=== PATIENT | male | born 1960 | race Caucasian/White ===

== ENCOUNTER 2016-06-04 09:09 | Emergency (ER) | payer OTHER ==
[2016-06-04 09:16] VITALS: BMI 24.3
--- NOTE | 2016-06-04 09:28 | PDOC ---
History of Present Illness - General Chief Complaint: Lightheaded Stated Complaint: ABD PAIN, NAUSEA, DIZZINESS Time Seen by Provider: 06/04/16 09:26 History Source: Patient Exam Limitations: No Limitations - History of Present Illness Initial Comments: 06/04/16 09:28 CHIEF COMPLAINT: Dizziness HISTORY OF PRESENT ILLNESS: This is a 55 year old male with a history of HTN and HLD who presents ambulatory to the ED with his son complaining of dizziness (describes as lightheadedness, not room-spinning), frontal headache, and nausea/ vomiting since last night. He reports that when he tried to stand up from the couch at 8am, he felt lightheaded and wasn't able to "walk right". He became diaphoretic at that time. His gate is now steady and he was able to ambulate into the ED. He is no longer dizzy or lightheaded, but still has frontal headache. He denies chest pain, shortness of breath, diarrhea/constipation, fevers/chills, or any other symptoms. Vital signs on arrival are all within normal limits. PCP is Dr. Denisha Holland. REVIEW OF SYSTEMS: GENERAL/CONSTITUTIONAL: No fever or chills. No weakness. No weight change. HEAD, EYES, EARS, NOSE AND THROAT: No change in vision. No ear pain or discharge. No sore throat. CARDIOVASCULAR: No chest pain or palpitations. RESPIRATORY: No cough, wheezing, or shortness of breath. GASTROINTESTINAL:Nausea/vomiting. No diarrhea or constipation. GENITOURINARY: No dysuria, frequency, or change in urination. MUSCULOSKELETAL: No joint or muscle swelling or pain. No neck or back pain. SKIN: No rash or easy bruising. NEUROLOGIC: Frontal headache, lightheadedness. No vertigo, loss of consciousness , or loss of sensation. PSYCHIATRIC: No depression or anxiety. ENDOCRINE: No increased thirst. No abnormal weight change. HEMATOLOGIC/LYMPHATIC: No anemia, easy bleeding, or history of blood clots. ALLERGIC/IMMUNOLOGIC: No hives or skin allergy. No latex allergy. PHYSICAL EXAM: GENERAL: The patient is awake, alert, and fully oriented, in no acute distress. HEAD: Normal with no signs of trauma. ENT: Pupils equal, round and reactive to light, extraocular movements intact, sclera anicteric, conjunctiva clear. Neck supple. LUNGS: Clear to auscultation bilaterally. Normal excursion. No respiratory distress or use of accessory muscles. CV: RRR, S1/S2, no MRG. Cap refill < 2 sec. ABDOMEN: Soft, non-distended, non-tender. EXTREMITIES: Normal range of motion, no edema. NEUROLOGICAL: Normal speech, normal gait. CN II-XII grossly intact. PSYCH: Normal mood, normal affect. SKIN: Warm, moist, normal turgor, no rashes or lesions noted. Past History - Past Medical History Allergies/Adverse Reactions: Allergies Allergy/AdvReac Type Severity Reaction Status Date / Time Latex, Natural Rubber Allergy Rash Verified 06/04/16 09:15 Home Medications: Ambulatory Orders RX: Atorvastatin Ca [Lipitor] 20 mg PO HS 03/02/14 RX: Lisinopril/Hydrochlorothiazide [Lisinopril-Hctz 20-12.5 mg Tab] 1 each PO DAILY 03/02/14 RX: Aspirin [Aspirin EC] 81 mg PO DAILY 03/23/15 Anemia: Yes Asthma: No Cancer: No Cardiac Disorders: No CVA: No COPD: No CHF: No Dementia: No Diabetes: No GI Disorders: Yes Disorders: No HTN: Yes Hypercholesterolemia: Yes Liver Disease: No Seizures: No Thyroid Disease: No - Surgical History Abdominal Surgery: No Appendectomy: No Cardiac Surgery: No Cholecystectomy: No Lung Surgery: No Neurologic Surgery: No Orthopedic Surgery: No - Psycho/Social/Smoking Cessation Hx Anxiety: No Suicidal Ideation: No Smoking Status: No Smoking History: Never smoked Have you smoked in the past 12 months: Yes Number of Cigarettes Smoked Daily: 0 Information on smoking cessation initiated: No Hx Alcohol Use: Yes (SOCIALLY) Drug/Substance Use Hx: No Substance Use Type: None Hx Substance Use Treatment: No *Physical Exam - Vital Signs Last Vital Signs Temp Pulse Resp BP Pulse Ox 98.7 F 74 18 120/47 99 06/04/16 09:11 06/04/16 09:11 06/04/16 09:11 06/04/16 09:11 06/04/16 09:11 Heart Score/ECG Review - ECG Intrepretation Comment:: 06/04/16 10:43 Sinus rhythm at 73bpm with occasional PVCs. ED Treatment Course - LABORATORY CBC & Chemistry Diagram: 06/04/16 09:59 06/04/16 09:59 - RADIOLOGY Radiology Studies Ordered: Category Date Time Status CHEST X-RAY PORTABLE* [RAD] Stat Radiology 06/04/16 09:27 Ordered Medical Decision Making - Medical Decision Making 06/04/16 10:47 A/P: 55 year old male with headache, nausea, and lightheadedness. 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 1. EKG 2. Cardiac labs 3. HCT to rule out acute intracranial process 4. Reglan/Benadryl for nausea and headache 5. Orthostatic v/s 6. IVF 7. Re-assess 06/04/16 11:02 CXR: fullness of the left hilum HCT: No acute process 06/04/16 11:53 Patient mildly orthostatic; will give additional IVF. Headache, nausea, dizziness resolved. 06/04/16 14:29 -Flu neg 06/04/16 15:09 Second troponin negative. Patient feeling better and is tolerating po. Will dc with PCP followup and good return precautions. *DC/Admit/Observation/Transfer Diagnosis at time of Disposition: Vomiting Qualifiers: Vomiting type: unspecified Vomiting Intractability: non-intractable Nausea presence: without nausea Qualified Code(s): R11.11 - Vomiting without nausea Headache Qualifiers: Headache chronicity pattern: acute headache Intractability: not intractable - Discharge Dispostion Disposition: HOME Condition at time of disposition: Improved Admit: No - Referrals Referrals: Denisha Moore MD [Primary Care Provider] - Call tomorrow - Patient Instructions Printed Discharge Instructions: DI for Vertigo Additional Instructions: -Rest and stay well-hydrated -Take Meclizine as prescribed for dizziness/nausea -Follow up with your primary care doctor tomorrow -Return here for worsening headache, weakness or numbness in the arms or legs, persistent dizziness, or any other concerning symptoms - Post Discharge Activity Work/School Note: Back to Work
[2016-06-04] MEDS ORDERED: METOCLOPRAMIDE HCL INJECTION 10 MG/2 ML VIAL IVPB ONE (09:36)
[2016-06-04] MEDS ORDERED: METOCLOPRAMIDE HCL INJECTION 10 MG/2 ML VIAL ONE (09:44)
[2016-06-04 10:16] LABS: BASOPHIL 0.2 % (0-2.0); EOSINOPHIL 0.8 % (0-4.5); MCH 26.7 pg (25.7-33.7); MCHC 33.2 g/dl (32.0-35.9); MEAN CELL VOLUME 80.4 fl (80-96); MEAN PLT VOLUME 7.9 fl (7.5-11.1); NEUTROPHILS 85.2 % (42.8-82.8); PLATELET COUNT 222 K/MM3 (134-434); WHITE BLOOD COUNT 10.3 K/mm3 (4.0-10.0)
[2016-06-04 10:29] LABS: INR 1.02 (0.82-1.09); PROTHROMBIN TIME (PATIENT) 11.2 SEC (9.98-11.88)
[2016-06-04 11:08] LABS: ALBUMIN 4.3 g/dl (3.4-5.0); ANION GAP 9 (8-16); BILIRUBIN,TOTAL 0.7 mg/dL (0.2-1.0); CALCIUM 8.4 mg/dL (8.5-10.1); CO2 29 mmol/L (21-32); CREATININE 0.8 mg/dL (0.7-1.3); GLUCOSE,RANDOM 106 mg/dL (74-106); SGOT/AST 27 U/L (15-37); SGPT/ALT 39 U/L (12-78); TOT PROT 7.8 g/dl (6.4-8.2)
[2016-06-04 11:11] LABS: ALK PHOS 53 U/L (45-117); TROPONIN I < 0.02 ng/ml (0.00-0.05)
[2016-06-04] MEDS ORDERED: SODIUM CHLORIDE 1,000 ML IV STA (12:21)
[2016-06-04 14:35] LABS: TROPONIN I < 0.02 ng/ml (0.00-0.05)
[2016-06-04 15:30] VITALS: BP 137/78; PULSE 82; TEMP 98.7
--- NOTE | 2016-06-04 23:22 | EKG ---
Test Reason : Blood Pressure : / mmHG Vent. Rate : 073 BPM Atrial Rate : 073 BPM P-R Int : 164 ms QRS Dur : 086 ms QT Int : 392 ms P-R-T Axes : 035 021 037 degrees QTc Int : 431 ms SINUS RHYTHM WITH OCCASIONAL PREMATURE VENTRICULAR COMPLEXES OTHERWISE NORMAL ECG WHEN COMPARED WITH ECG OF 03-MAR-2014 08:37, PREMATURE VENTRICULAR COMPLEXES ARE NOW PRESENT Confirmed by ALLEN MARTIN MD ([id number]) on 06/04/2016 11:22:27 PM Referred By: Confirmed By:ALLEN MARTIN MD
== END 2016-06-04 15:30 | disposition home or self-care (01) ==
LOC: JER 09:09
PROC: 3E0337Z Introduction of Electrolytic and Water Balance Substance into Peripheral Vein, Percutaneous Approach (ICD-10-PCS; principal; 2016-06-04)
PROC: 3E033GC Introduction of Other Therapeutic Substance into Peripheral Vein, Percutaneous Approach (ICD-10-PCS; 2016-06-04)
DX: I10 Essential (primary) hypertension (principal); E78.00 Pure hypercholesterolemia, unspecified; D64.9 Anemia, unspecified
CPT/HCPCS: 36415; 70450-TC; 71010-TC; 80053; 82550; 82553; 84484; 85025; 85610; 87804; 93005; 93010; 96361; 96374; 96375; 99284-25

== ENCOUNTER 2017-08-20 11:43 | Emergency (ER) | payer BC, OTHER ==
--- NOTE | 2017-08-20 11:57 | PDOC ---
History of Present Illness - General Chief Complaint: Injury Stated Complaint: RIGHT ANKLE INJURY Time Seen by Provider: 08/20/17 11:47 History Source: Patient Exam Limitations: No Limitations - History of Present Illness Initial Comments: 08/20/17 11:53 56 yo M c/ hx of HTN, HLD p/w R ankle foot and pain. 3 days ago, tripped and fell down 4 steps. Injured right ankle. Has been having difficulty ambulating on it 2/2 pain. Noted bruising to medial foot. Denies numbness, weakness. Has been taking alleve for pain control. Reports bearing weight as painful. Past History - Past Medical History Allergies/Adverse Reactions: Allergies Allergy/AdvReac Type Severity Reaction Status Date / Time Latex, Natural Rubber Allergy Rash Verified 08/20/17 11:44 Home Medications: Ambulatory Orders Aspirin [Aspirin EC] 81 mg PO DAILY 03/23/15 Atorvastatin Ca [Lipitor] 20 mg PO HS 08/20/17 Lisinopril/Hydrochlorothiazide [Lisinopril-Hctz 10-12.5 mg Tab] 1 tab PO DAILY 08/20/17 Naproxen Sodium [Aleve] 220 mg PO PRN 08/20/17 Anemia: Yes Asthma: No Cancer: No Cardiac Disorders: No CVA: No COPD: No CHF: No Dementia: No Diabetes: No GI Disorders: Yes Disorders: No HTN: Yes Hypercholesterolemia: Yes Liver Disease: No Seizures: No Thyroid Disease: No - Surgical History Abdominal Surgery: No Appendectomy: No Cardiac Surgery: No Cholecystectomy: No Lung Surgery: No Neurologic Surgery: No Orthopedic Surgery: No - Suicide/Smoking/Psychosocial Hx Smoking Status: No Smoking History: Never smoked Have you smoked in the past 12 months: Yes Number of Cigarettes Smoked Daily: 0 Hx Alcohol Use: Yes (SOCIALLY) Drug/Substance Use Hx: No Substance Use Type: None Hx Substance Use Treatment: No Review of Systems - Review of Systems Able to Perform ROS?: Yes Comments:: 08/20/17 11:58 ROS: GENERAL/CONSTITUTIONAL: No fever or chills. No weakness. HEAD, EYES, EARS, NOSE AND THROAT: No change in vision. No ear pain or discharge. No sore throat. CARDIOVASCULAR: No chest pain or shortness of breath. RESPIRATORY: No cough, wheezing, or hemoptysis. GASTROINTESTINAL: No nausea, vomiting, diarrhea or constipation. GENITOURINARY: No dysuria, frequency, or change in urination. MUSCULOSKELETAL: +Right ankle and foot pain. No neck or back pain. SKIN: No rash NEUROLOGIC: No headache, vertigo, loss of consciousness, or change in strength/ sensation. ENDOCRINE: No increased thirst. No abnormal weight change. HEMATOLOGIC/LYMPHATIC: No anemia, easy bleeding, or history of blood clots. ALLERGIC/IMMUNOLOGIC: No hives or skin allergy. *Physical Exam - Physical Exam Comments: 08/20/17 12:00 GENERAL: Awake, alert, and fully oriented, in no acute distress. HEAD: No signs of trauma EYES: PERRLA, EOMI, sclera anicteric, conjunctiva clear ENT: Auricles normal inspection, hearing grossly normal, nares patent NECK: Normal ROM, supple EXTREMITIES: RLE: 2+ DP pulse. Sensation intact throughout. TTP medial and lateral malleolus. Large ecchymosis to right medial foot. Mild tenderness appreciated along the distal tibia. NEUROLOGICAL: Cranial nerves II through XII grossly intact.~ Normal speech SKIN: Warm, Dry, normal turgor, no rashes or lesions noted. Procedures - Splinting Splint Location: Right: Foot, Ankle Pre-Proc Neuro Vasc Exam: normal Hand-Made Type: orthoglass Splint Type: Yes: Posterior Post-Proc Neuro Vasc Exam: normal Neville Bandage: 3" Sling: No Complications: No Post splint xray: No Good repositioning: Yes ED Treatment Course - RADIOLOGY Radiology Studies Ordered: Category Date Time Status ANKLE & FOOT-RIGHT* [RAD] Stat Radiology 08/20/17 11:51 Ordered LEG TIB/FIB-RIGHT [RAD] Stat Radiology 08/20/17 11:51 Ordered Medical Decision Making - Medical Decision Making 08/20/17 12:03 Vital Signs Temp Pulse Resp BP Pulse Ox 97.7 F 67 16 147/83 100 08/20/17 11:43 08/20/17 11:43 08/20/17 11:43 08/20/17 11:43 08/20/17 11:43 Will need to r/o ankle/foot/distal tib fracture. Xrays If negative for fracture, will likely splint for high degree sprain and have patient follow up with orthopedics. Elevated. NSAIDS. Ice PRN Non weight bearing. 08/20/17 13:51 Xrays reviewed by me, pending official radiology read. Questionable distal nondisplaced medial tibial fracture. Patient was placed in a posterior U splint and made non weight bearing. Pt is ambulatory on crutches. Pt will call today to schedule an apppointment with an orthopedist. *DC/Admit/Observation/Transfer Diagnosis at time of Disposition: Ankle pain Qualifiers: Chronicity: acute Laterality: right Qualified Code(s): M25.571 - Pain in right ankle and joints of right foot - Discharge Dispostion Disposition: HOME Condition at time of disposition: Stable Admit: No - Referrals Referrals: Robin Baldwin MD [Staff Physician] - Barry Yanez MD [Staff Physician] - - Patient Instructions Printed Discharge Instructions: DI for Ankle Sprain Additional Instructions: Please wear the splint on your leg. Do not take this off. When you shower, cover it with a bag. Elevate the leg as much as you can. Do not put weight on your splint or leg. Take 600 mg ibuprofen every 6 hours as needed for pain. Ice 10 minutes every other hour. Use the crutches to walk around. Call today and schedule an appointment with an orthopedist. There may be a possible small fracture on the preliminary xray. Please call back [phone] for the official results. - Post Discharge Activity Forms/Work/School Notes: Back to Work
[2017-08-20 12:00] VITALS: BP 147/83; PULSE 67; TEMP 97.7; BMI 26.6
== END 2017-08-20 14:04 | disposition home or self-care (01) ==
LOC: FER 11:43
PROC: 2W3QX1Z Immobilization of Right Lower Leg using Splint (ICD-10-PCS; principal; 2017-08-20)
DX: M25.571 Pain in right ankle and joints of right foot (principal); I10 Essential (primary) hypertension; E78.5 Hyperlipidemia, unspecified
CPT/HCPCS: 73590-TC-RT-FY; 73610-TC-RT-FY; 73630-TC-RT-FY; 99281-25

== ENCOUNTER 2020-02-04 15:22 | Emergency (ER) | payer OTHER ==
--- NOTE | 2020-02-04 15:26 | PDOC ---
Rapid Medical Evaluation Time Seen by Provider: 02/04/20 15:23 Medical Evaluation: Allergies Allergy/AdvReac Type Severity Reaction Status Date / Time Latex, Natural Rubber Allergy Rash Verified 08/20/17 11:44 02/04/20 15:25 59 y/o M atraumatic L arm numbness into 4th and 5th fingers PE: No gross motor deficits ORDERS: C-spine x-ray Discharge Disposition - Diagnosis Cervical radiculopathy - Discharge Dispostion Condition at time of disposition: Stable - Referrals - Patient Instructions - Post Discharge Activity
[2020-02-04 15:29] VITALS: BP 128/72; PULSE 78; TEMP 98.3; BMI 27.4
--- NOTE | 2020-02-04 16:35 | PDOC ---
History of Present Illness - General Chief Complaint: Pain, Acute Stated Complaint: LT ARM PAIN Time Seen by Provider: 02/04/20 15:23 History Source: Patient Exam Limitations: No Limitations - History of Present Illness Initial Comments: 02/04/20 16:26 Patient is a 59-year-old male with history HTN, HLD, hemorrhoidectomy, here with complaints of numbness to his left fourth and fifth fingers which started half an hour prior to presentation. States that he has pain radiating up the left arm and when he touches the arm he has more pain to the fourth and fifth fingers. He denies any injury, no fall. No prior episodes. He takes an aspirin daily. PMD: Dr. Moore PMHX; as above PSOCHX: (+) hooka, neg etoh, neg drug ALL: Latex GENERAL/CONSTITUTIONAL: [No fever or chills. No weakness. No weight change.] HEAD, EYES, EARS, NOSE AND THROAT: [No change in vision. No ear pain or discharge. No sore throat.] MUSCULOSKELETAL: [(+) joint or muscle swelling or pain. No neck or back pain.] SKIN AND BREASTS: [No rash or easy bruising.] NEUROLOGIC: [No headache, vertigo, loss of consciousness, or loss of sensation.] PSYCHIATRIC: [No depression or anxiety.] ENDOCRINE: [No increased thirst. No abnormal weight change.] HEMATOLOGIC/LYMPHATIC: [No anemia, easy bleeding, or history of blood clots.] ALLERGIC/IMMUNOLOGIC: [No hives or skin allergy. No latex allergy.] GENERAL: [The patient is awake, alert, and fully oriented, in no acute distress.] HEAD: [Normal with no signs of trauma.] EYES: [Pupils equal, round and reactive to light, extraocular movements intact, sclera anicteric, conjunctiva clear.] ABDOMEN: [Soft, nontender, normoactive bowel sounds. No guarding, no rebound. No masses.] EXTREMITIES: [Normal range of motion, no edema. No clubbing or cyanosis. No cor ds, erythema, or tenderness.] NEUROLOGICAL: [Cranial nerves II through XII grossly intact. Sensory intact, strength 5/5 bilaterally, normal speech, cerebella function intact - normal finger to nose, heal to lacey normal gait.] PSYCH: [Normal mood, normal affect.] SKIN: [Warm, Dry, normal turgor, no rashes or lesions noted.] Past History - Medical History Allergies/Adverse Reactions: Allergies Allergy/AdvReac Type Severity Reaction Status Date / Time Latex, Natural Rubber Allergy Rash Verified 08/20/17 11:44 Home Medications: Ambulatory Orders Aspirin [Aspirin EC] 81 mg PO DAILY 03/23/15 Atorvastatin Ca [Lipitor] 20 mg PO HS 08/20/17 Lisinopril/Hydrochlorothiazide [Lisinopril-Hctz 10-12.5 mg Tab] 1 tab PO DAILY 08/20/17 Naproxen Sodium [Aleve] 220 mg PO PRN 08/20/17 Anemia: Yes Asthma: No Cancer: No Cardiac Disorders: No CVA: No COPD: No CHF: No Dementia: No Diabetes: No GI Disorders: Yes Disorders: No HTN: Yes Hypercholesterolemia: Yes Liver Disease: No Seizures: No Thyroid Disease: No - Surgical History Abdominal Surgery: No Appendectomy: No Cardiac Surgery: No Cholecystectomy: No GI Surgery: Yes (HERNIA REPAIR) Lung Surgery: No Neurologic Surgery: No Orthopedic Surgery: No - Immunization History Immunization Up to Date: No - Psycho-Social/Smoking History Smoking Status: No Smoking History: Unknown if ever smoked Have you smoked in the past 12 months: No Number of Cigarettes Smoked Daily: 0 Information on smoking cessation initiated: No - Substance Abuse Hx (Audit-C & DAST Scrn) How often the patient has a drink containing alcohol: Never Score: In Men: 4 or > Positive; In Women: 3 or > Positive: 0 Screen Result (Pos requires Nsg. Audit-10AR): Negative In the last yr the pt used illegal drug/Rx for NonMed reason: No Score: Yes response is considered Positive: 0 Screen Result (Positive result requires Nsg. DAST-10): Negative *Physical Exam - Vital Signs Last Vital Signs Temp Pulse Resp BP Pulse Ox 98.3 F 78 16 128/72 98 02/04/20 15:26 02/04/20 15:26 02/04/20 15:26 02/04/20 15:26 02/04/20 15:26 Medical Decision Making - Medical Decision Making 02/04/20 16:26 Patient is a 59-year-old male with history HTN, HLD, hemorrhoidectomy, here with complaints of numbness to his left fourth and fifth fingers which started half an hour prior to presentation. States that he has pain radiating up the left arm and when he touches the arm he has more pain to the fourth and fifth fingers. He denies any injury, no fall. No prior episodes. He takes an aspirin daily. Symptoms consistent with nerve entrapment Normal neurological exam Cervical spine x-ray done no acute findings I discussed the physical exam findings, ancillary test results and final diagnoses with the patient. I answered all of the patient's questions. The patient was satisfied with the care received and felt comfortable with the discharge plan and treatment plan. The Patient agrees to follow up with the primary care physician within 24-72 hours. Discharge - Discharge Information Problems reviewed: Yes Clinical Impression/Diagnosis: Cervical radiculopathy Condition: Stable Disposition: HOME - Follow up/Referral Referrals: Denisha Moore MD [Primary Care Provider] - - Patient Discharge Instructions Patient Printed Discharge Instructions: DI for Cervical Radiculopathy Additional Instructions: Your Discharge Instructions: You must call primary care physician within 24 hours to arrange follow-up. Return to the Emergency Department with any new, persistent or worsening symptoms, for fever, chills, SOB, dizziness or any other concerning changes that may occur. - Post Discharge Activity
--- OUTSIDE RECORDS SUMMARY | 2020-02-04 19:59 | XMS ---
:1960 Author Organization [facility] Care Team Providers Name Role Phone Dennis Chinchilla MD Unavailable Unavailable TarloweLucia MD Unavailable Unavailable TarloweLucia MD Unavailable Unavailable Tarlowe, H Unavailable Unavailable Tarlowe, H Unavailable Unavailable Tarlowe, H Unavailable Unavailable Re-disclosure Warning The records that you are about to access may contain information from federally- assisted alcohol or drug abuse programs. If such information is present, then the following federally mandated warning applies: This information has been disclosed to you from records protected by federal confidentiality rules (42 CFR part 2). The federal rules prohibit you from making any further disclosure of this information unless further disclosure is expressly permitted by the written consent of the person to whom it pertains or as otherwise permitted by 42 CFR part 2. A general authorization for the release of medical or other information is NOT sufficient for this purpose. The Federal rules restrict any use of the information to criminally investigate or prosecute any alcohol or drug abuse patient.The records that you are about to access may contain highly sensitive health information, the redisclosure of which is protected by Article 27-F of the [facility] Public Health law. If you continue you may haveaccess to information: Regarding HIV / AIDS; Provided by facilities licensed or operated by the [facility] Office of Mental Health; or Provided by the [facility] Office for People With Developmental Disabilities. If such information is present, then the following [facility] mandated warning applies: This information has been disclosed to you from confidential records which are protected by state law. State law prohibits you from making any further disclosure of this information without the specific written consent of the person to whom it pertains, or as otherwise permitted by law. Any unauthorized further disclosure in violation of state law may result in a fine or long term sentence or both. A general authorization for the release of medical or other information is NOT sufficient authorization for further disclosure. Allergies and Adverse Reactions Type Description Substance Reaction Status Data Source(s ) Allergy to Allergy to substance NKDA ATHE NA (Dennis LuciaAgueda substance [facility] Allergy to Allergy to substance NKDA ATHE NA (Dennis H. substance Editae [facility] Allergy to Allergy to substance NKDA ATHE NA (Dennis H. substance Elanlowe [facility] Encounters Encounter Providers Location Date Indications Data Source(s ) Dennis Ngo Attender: [facility] Dennis Salmon 06/09/2019 PAUL Fajardo (Dennis Chinchilla MD: 12 Dennis Chinchilla M.D., 12:00:00 Lucia Moore.C. - [facility] [address] [id number], [place] [address], Ph. Dennis Ngo Attender: [facility] Dennis Salmon 05/27/2019 PAUL Fajardo (Dennis Chinchilla MD: 12 Dennis Chinchilla M.D., 12:00:00 Lucia Ledbetter MD P.C[facility] - [facility] [address], [place] [address], Ph. Dennis Ngo Attender: [facility] Dennis Salmon 05/27/2019 PAUL Fajardo (Dennis Chinchilla MD: 12 Dennis Chinchilla M.D., 12:00:00 Lucia Ledbetter MD P.C[facility] - [facility]uedaD[facility] [address], [place] [address], Ph. Dennis Ngo Attender: [facility] Dennis Salmon 05/02/2019 PAUL Fajardo (Dennis Chinchilla MD: 12 Dennis Chinchilla M.D., 12:00:00 Lucia SesayCAgueda - [facility] M[facility] [address], [place] [phone], Ph. Dennis Ngo Attender: ALEXSANDRA Salmon 05/02/2019 PAUL Fajardo (Dennis Chinchilla MD: 12 Dennis Chinchilla M.D., 12:00:00 Lucia SesayC. - [facility] M[facility] [address], [place] [address], Ph. Dennis Ngo Attender: [facility] Dennis Salmon 05/02/2019 PAUL Fajardo (Dennis Chinchilla MD: 12 Dennis Chinchilla M.D., 12:00:00 Lucia SesayCAgueda - [facility] M[facility] [address], [place] [phone], Ph. Dennis Ngo Attender: ALEXSANDRA Salmon 12/16/2018 PAUL Fajardo (Dennis Chinchilla MD: 12 Dennis Chinchilla M.D., 12:00:00 Lucia Moore.C. - [facility]K M.D[facility] [address], [place] [phone], Ph. Dennis Ngo Attender: [facility] Dennis Salmon 12/16/2018 PAUL Fajardo (Dennis Chinchilla MD: 12 Dennis Chinchilla M.D., 12:00:00 Lucia Moore.C. - [facility] M.D[facility] [address], [place] [address], Ph. Dennis Ngo Attender: [facility] Dennis Salmon 12/16/2018 PAUL Fajardo (Dennis Chinchilla MD: 12 Dennis Chinchilla M.D., 12:00:00 H . Amor Moore.C. - [facility] [address], [place] [phone], Ph. Dennis Ngo Attender: [facility] Dennis Salmon 12/03/2018 PAUL Fajardo (Dennis Chinchilla MD: 12 Dennis Chinchilla M.D., 12:00:00 H Agueda Moore.C. - [facility], [facility] [address], [place] [phone], Ph. Dennis Ngo Attender: [facility] Dennis Salmon 12/03/2018 PAUL Fajardo (Dennis Chinchilla MD: 12 Dennis Chinchilla M.D., 12:00:00 H Agueda Moore.C. - [facility], [facility] [address], [place] [phone], Ph. Dennis Ngo Attender: [facility] Dennis Salmon 12/03/2018 PAUL Fajardo (Dennis Chinchilla MD: 12 Dennis Chinchilla M.D., 12:00:00 H . Amor Moore.C. - [facility] [place] [address], [place] [address], [place] [address], Ph. Dennis Ngo Attender: [facility] Dennis Salmon 11/19/2018 PAUL Fajardo (Dennis Chinchilla MD: 12 Dennis Chinchilla M.D., 12:00:00 H Agueda Moore.C. - [facility] [address], [place] [address], Ph. Dennis Ngo Attender: ALEXSANDRA Salmon 11/19/2018 PAUL Fajardo (Dennis Chinchilla MD: 12 Dennis Chinchilla M.D., 12:00:00 H . Amor Ledbetter MD P.C[facility] - [facility], [facility] [address], [place] [address], Ph. Dennis Ngo Attender: ALEXSANDRA Salmon 11/19/2018 PAUL Fajardo (Dennis Chinchilla MD: 12 Dennis Chinchilla M.D., 12:00:00 H . Amor Ledbetter MD P.C. - [facility] [place] [address], [place] [address], Ph. Medications Medication Brand Start Product Dose Route Administrative Pharmacy [facility] Indications Reaction Description Data Name Date Form Instructions Instructions Source(s) Sodium Enema complet Sodium LEANDRA Phosphate, Dispos ed Phosphate, ( Dennis Dibasic able Dibasic 59.3 H. T arlowe 59.3 MG/ML 19 MG/ML / M.D., / Sodium gram-7 Sodium P.C.) Phosphate, gram/1 Phosphate, Monobasic 18 mL Monobasic 161 MG/ML 161 MG/ML Enema Enema Enema Disposable 19 gram-7 gram/118 mL Nifedipine complet Nifedipine LEANDRA 0.2% ed 0.2% (Dennis ointment ointment Viky Camacho owrony APPLY ONE M.D., PEA SIZE P.C.) APPLICATION NH TID POLYETHYLEN Gavila complet POLYETHY MYRNA LEANDRA E GLYCOL x 17 ed GLYCOL 3350 (Guillaume hael 3350 142 gram/d 21421 MG H. Ta rlowe MG/ML Oral ose Powder for M.D ., Solution oral Oral P.C.) [Gavilax] powder Solution Gavilax 17 [Gavilax] gram/dose oral powder compound complet compound ATHE NA rx(nif+fabian+ ed rx(nif+fabian+v (Dennis vas) APPLY as) H. Tarlow e A PEA SIZE M.D., AMOUNT P.C.) RECTALLY THREE TIMES A DAY Nifedipine complet Nifedipine LEANDRA 0.2% ed 0.2% (Dennis ointment ointment H. Tarl owe APPLY ONE M.D., PEA-SIZE P.C.) APPLICATION NH TID atorvastati atorva complet atorvast atin LEANDRA n 20 MG statin ed 20 MG Oral (Guillaume hael Oral Tablet 20 mg Tablet H. Ta rlowe atorvastati tablet M.D., n 20 mg P.C.) tablet Nifedipine complet Nifedipine LEANDRA 0.2% ed 0.2% (Dennis ointment ointment H. Tarl owe APPLY ONE M.D., PEA-SIZE P.C.) APPLICATION NH TID Amoxicillin amoxic complet Amoxicil masha LEANDRA 875 MG / illin ed 875 MG / (Monty el Clavulanate 875 Clavulanate H . Tarlowe 125 MG Oral mg-pot 125 MG Oral M.D., Tablet assium Tablet P.C.) amoxicillin clavul 875 anate mg-potassiu 125 mg m tablet clavulanate 125 mg tablet doxycycline doxycy complet doxycycl ine LEANDRA hyclate 100 stein ed hyclate 100 (Dennis MG Oral hyclat MG Oral H. Tarl owe Capsule e 100 Capsule M.D., doxycycline mg P.C.) hyclate 100 capsul mg capsule e Sodium Enema complet Sodium LEANDRA Phosphate, Dispos ed Phosphate, ( Dennis Dibasic able Dibasic 59.3 H. T arlowe 59.3 MG/ML 19 MG/ML / M.D., / Sodium gram-7 Sodium P.C.) Phosphate, gram/1 Phosphate, Monobasic 18 mL Monobasic 161 MG/ML 161 MG/ML Enema Enema Enema Disposable 19 gram-7 gram/118 mL Docusate Stool complet Docusate ATH BARRIE Sodium 50 Soften ed Sodium 50 MG (Dennis MG / er-Lax / H. Tarlowe sennosides, ative sennosides, M.D., DETENTION 8.6 MG 8.6 DETENTION 8.6 MG P.C .) Oral Tablet mg-50 Oral Tablet Stool mg Softener-La tablet xative 8.6 mg-50 mg tablet Omeprazole omepra complet Omeprazol e LEANDRA 20 MG zole ed 20 MG (Dennis Delayed 20 mg Delayed H. Tarlo we Release capsul Release Oral M. D., Oral e,wali Capsule P.C.) Capsule yed omeprazole releas 20 mg e capsule,del ayed release compound complet compound ATHE NA rx(nif+fabian+ ed rx(nif+fabian+v (Dennis vas) APPLY as) H. Tarlow e ONE M.D., PEA-SIZE P.C.) APPLICATION RECTALLY 3 TIMES A DAY Ibuprofen ibupro complet Ibuprofen LEANDRA 600 MG Oral fen ed 600 MG Oral ( Dennis Tablet 600 mg Tablet H. Tarlow e ibuprofen tablet M.D., 600 mg P.C.) tablet Amoxicillin amoxic complet Amoxicil masha LEANDRA 500 MG Oral illin ed 500 MG Oral (Dennis Capsule 500 mg Capsule H. Tarl owe amoxicillin capsul M.D., 500 mg e P.C.) capsule Isopropyl Easy complet Isopropyl AT [place] Alcohol 0.7 Touch ed Alcohol 0.7 (Dennis ML/ML Alcoho ML/ML H. Tarlowe Medicated l Prep Medicated M.D ., Pad Easy Pads Pad P.C.) Touch Alcohol Prep Pads sennosides, senna complet sennoside s, LEANDRA DETENTION 8.6 MG 8.6 mg ed DETENTION 8.6 MG ( Dennis Oral Tablet tablet Oral Tablet H. Tarlowe [Senna-Time [Senna-Time] M.D., ] senna 8.6 P.C.) mg tablet Hydrochloro lisino complet Hydrochl orot LEANDRA thiazide pril ed hiazide 12.5 (Mi chael 12.5 MG / 10 MG / H. Tarlowe Lisinopril mg-hyd Lisinopril M .D., 10 MG Oral rochlo 10 MG Oral P .C.) Tablet rothia Tablet lisinopril zide 10 12.5 mg-hydrochl mg orothiazide tablet 12.5 mg tablet Ibuprofen ibupro complet Ibuprofen LEANDRA 600 MG Oral fen ed 600 MG Oral ( Dennis Tablet 600 mg Tablet H. Tarlow e ibuprofen tablet M.D., 600 mg P.C.) tablet Ultra Thin 834842 complet Ultra Thi n LEANDRA Lancets 31 ed Lancets 31 (Mi chael gauge gauge H. Tarlowe M.D., P.C.) FreeStyle 267572 complet FreeStyle LEANDRA Lite Meter ed Lite Meter (Mi chael kit kit H. Tarlowe M.D., P.C.) FreeStyle 884878 complet FreeStyle LEANDRA Lite Meter ed Lite Meter (Ut chael kit kit H. Tarlowe M.D., P.C.) sennosides, senna complet sennoside s, LEANDRA DETENTION 8.6 MG 8.6 mg ed DETENTION 8.6 MG ( Dennis Oral Tablet tablet Oral Tablet H. Tarlowe [Senna-Time [Senna-Time] M.D., ] senna 8.6 P.C.) mg tablet Autolet [id number] complet Autolet ATHE NA Impression ed Impression (Ut chael Lancing Lancing H. Tarlow e Device kit Device kit M.D ., P.C.) doxycycline doxycy complet doxycycl ine LEANDRA hyclate 100 stein ed hyclate 100 (Dennis MG Oral hyclat MG Oral H. Tarl owe Capsule e 100 Capsule M.D., doxycycline mg P.C.) hyclate 100 capsul mg capsule e Amoxicillin amoxic complet Amoxicil masha LEANDRA 500 MG Oral illin ed 500 MG Oral (Dennis Capsule 500 mg Capsule H. Tarl owe amoxicillin capsul M.D., 500 mg e P.C.) capsule ferrous ferrou complet ferrous ATHE NA sulfate 325 s ed sulfate 325 ( Dennis MG Oral sulfat MG Oral H. Tarl owe Tablet e 325 Tablet M.D., ferrous mg (65 P.C.) sulfate 325 mg mg (65 mg iron) iron) tablet tablet Metronidazo metron complet Metronid azol LEANDRA le 250 MG idazol ed e 250 MG (Guillaume hael Oral Tablet e 250 Oral Tablet H. Tarlowe metronidazo mg M.D., le 250 mg tablet P.C.) tablet Ultra-Care 533585 complet Ultra-Car e LEANDRA Lancets 30 ed Lancets 30 (Ut chael gauge gauge H. Tarlowe M.D., P.C.) Autolet 213291 complet Autolet ATHE NA Impression ed Impression (Ut chael Lancing Lancing H. Tarlow e Device kit Device kit M.D ., P.C.) Aspirin 81 aspiri complet Aspirin 8 1 LEANDRA MG Delayed n 81 ed MG Delayed (Mi chael Release mg Release Oral H. T arlowe Oral Tablet tablet Tablet M.D. , aspirin 81 ,delay P.C.) mg ed tablet,wali releas yed release e Metronidazo metron complet Metronid azol LEANDRA le 500 MG idazol ed e 500 MG (Guillaume hael Oral Tablet e 500 Oral Tablet H. Tarlowe metronidazo mg M.D., le 500 mg tablet P.C.) tablet Hydrocortis Procto complet Hydrocor tiso LEANDRA one 25 zone-H ed ne 25 MG/ML (Guillaume hael MG/ML C 2.5 Topical H. Tarlowe Topical % Cream M.D., Cream topica [Proctozone P.C.) [Proctozone l HC] HC] cream Proctozone- perine HC 2.5 % al topical applic cream ator perineal applicator Bisacodyl 5 bisaco complet Bisacody l 5 LEANDRA MG Delayed dyl 5 ed MG Delayed (M ichael Release mg Release Oral H. T arlowe Oral Tablet tablet Tablet M.D. , bisacodyl 5 ,delay P.C.) mg ed tablet,wali releas yed release e Metronidazo metron complet Metronid azol LEANDRA le 500 MG idazol ed e 500 MG (Guillaume hael Oral Tablet e 500 Oral Tablet H. Tarlowe metronidazo mg M.D., le 500 mg tablet P.C.) tablet atorvastati atorva complet atorvast atin LEANDRA n 40 MG statin ed 40 MG Oral (Guillaume hael Oral Tablet 40 mg Tablet H. Ta rlowe atorvastati tablet M.D., n 40 mg P.C.) tablet Ergocalcife Vitami complet Ergocalc ifer LEANDRA rol [address] n [place]2 [place] [address] UNT (M ichael UNT Oral 1,250 Oral Capsule H. Tarlowe Capsule mcg M.D., Vitamin D2 (50,00 P.C.) 1,250 mcg 0 (50,000 unit) unit) capsul capsule e Ultra Thin 535275 complet Ultra Thi n LEANDRA Lancets 31 ed Lancets 31 (Mi chael gauge gauge H. Tarlowe M.D., P.C.) ezetimibe ezetim complet ezetimibe 10 LEANDRA 10 MG Oral jordan 10 ed MG Oral (Guillaume hael Tablet mg Tablet H. Tarlowe ezetimibe tablet M.D., 10 mg P.C.) tablet ferrous ferrou complet ferrous ATHE NA sulfate 325 s ed sulfate 325 ( Dennis MG Oral sulfat MG Oral H. Tarl owe Tablet e 325 Tablet M.D., ferrous mg (65 P.C.) sulfate 325 mg mg (65 mg iron) iron) tablet tablet Ultra-Care [id number] complet Ultra-Car e LEANDRA Lancets 30 ed Lancets 30 (Ut chael gauge gauge H. Amor M.D., P.C.) Metronidazo metron complet Metronid azol LEANDRA le 500 MG idazol ed e 500 MG (Guillaume hael Oral Tablet e 500 Oral Tablet H. Tarlowe metronidazo mg M.D., le 500 mg tablet P.C.) tablet Hydrocortis hydroc complet Hydrocor tiso LEANDRA one 25 ortiso ed ne 25 MG/ML (Guillaume hael MG/ML ne 2.5 Topical H. Tarlow e Topical % Cream M.D., Cream topica P.C.) hydrocortis l one 2.5 % cream topical cream Nifedipine complet Nifedipine LEANDRA 0.2% ed 0.2% (Dennis ointment ointment H. Tarl owe APPLY ONE M.D., PEA-SIZE P.C.) APPLICATION NH TID Amoxicillin amoxic complet Amoxicil masha LEANDRA 875 MG / illin ed 875 MG / (Monty el Clavulanate 875 Clavulanate H . Tarlowe 125 MG Oral mg-pot 125 MG Oral M.D., Tablet assium Tablet P.C.) amoxicillin clavul 875 anate mg-potassiu 125 mg m tablet clavulanate 125 mg tablet POLYETHYLEN Gavila complet POLYETHY MYRNA LEANDRA E GLYCOL x 17 ed GLYCOL 3350 (Guillaume hael 3350 142 gram/d 61722 MG H. Ta rlowe MG/ML Oral ose Powder for M.D ., Solution oral Oral P.C.) [Gavilax] powder Solution Gavilax 17 [Gavilax] gram/dose oral powder Nifedipine complet Nifedipine LEANDRA 0.2% ed 0.2% (Dennis ointment ointment H. Tarl owe APPLY ONE M.D., PEA-SIZE P.C.) APPLICATION NH TID Nifedipine complet Nifedipine LEANDRA 0.2% ed 0.2% (Dennis ointment ointment H. Tarl owe APPLY ONE M.D., PEA-SIZE P.C.) APPLICATION NH TID Metronidazo metron complet Metronid azol LEANDRA le 250 MG idazol ed e 250 MG (Guillaume hael Oral Tablet e 250 Oral Tablet H. Tarlowe metronidazo mg M.D., le 250 mg tablet P.C.) tablet Ergocalcife Vitami complet Ergocalc ifer LEANDRA rol 29208 n D2 ed ol 1.25 MG (Guillaume hael UNT Oral 1,250 Oral Capsule H. Tarlowe Capsule mcg M.D., Vitamin D2 (50,00 P.C.) 1,250 mcg 0 (50,000 unit) unit) capsul capsule e Ultra-Care 479592 complet Ultra-Car e LEANDRA Lancets 30 ed Lancets 30 (Ut chael gauge gauge HAgueda Chinchilla M.D., P.C.) atorvastati atorva complet atorvast atin LEANDRA n 20 MG statin ed 20 MG Oral (Guillaume hael Oral Tablet 20 mg Tablet H. Ta rlowe atorvastati tablet M.D., n 20 mg P.C.) tablet Sodium Enema complet Sodium LEANDRA Phosphate, Dispos ed Phosphate, ( Dennis Dibasic able Dibasic 59.3 H. T arlowe 59.3 MG/ML 19 MG/ML / M.D., / Sodium gram-7 Sodium P.C.) Phosphate, gram/1 Phosphate, Monobasic 18 mL Monobasic 161 MG/ML 161 MG/ML Enema Enema Enema Disposable 19 gram-7 gram/118 mL Autolet [id number] complet Autolet ATHE NA Impression ed Impression (Mi chael Lancing Lancing HAgueda Kohler e Device kit Device kit M.D ., P.C.) Ibuprofen ibupro complet Ibuprofen LEANDRA 600 MG Oral fen ed 600 MG Oral ( Dennis Tablet 600 mg Tablet H. Tarlow e ibuprofen tablet M.D., 600 mg P.C.) tablet Docusate Stool complet Docusate ATH BARRIE Sodium 50 Soften ed Sodium 50 MG (Dennis MG / er-Lax / H. Tarlowe sennosides, ative sennosides, M.D., DETENTION 8.6 MG 8.6 DETENTION 8.6 MG P.C .) Oral Tablet mg-50 Oral Tablet Stool mg Softener-La tablet xative 8.6 mg-50 mg tablet bismuth Bismat complet bismuth ATHE NA subsalicyla rol ed subsalicylat (Dennis te 262 MG 262 mg e 262 MG H. T arlowe Chewable chewab Chewable M.D., Tablet le Tablet P.C.) Bismatrol tablet 262 mg chewable tablet Isopropyl Easy complet Isopropyl AT [place] Alcohol 0.7 Touch ed Alcohol 0.7 (Dennis ML/ML Alcoho ML/ML H. Tarlowe Medicated l Prep Medicated M.D ., Pad Easy Pads Pad P.C.) Touch Alcohol Prep Pads Amoxicillin amoxic complet Amoxicil masha LEANDRA 875 MG / illin ed 875 MG / (Monty el Clavulanate 875 Clavulanate H . Tarlowe 125 MG Oral mg-pot 125 MG Oral M.D., Tablet assium Tablet P.C.) amoxicillin clavul 875 anate mg-potassiu 125 mg m tablet clavulanate 125 mg tablet Ergocalcife Vitami complet Ergocalc ifer LEANDRA rol 03731 n D2 ed ol 1.25 MG (Guillaume hael UNT Oral 1,250 Oral Capsule H. Tarlowe Capsule mcg M.D., Vitamin D2 (50,00 P.C.) 1,250 mcg 0 (50,000 unit) unit) capsul capsule e atorvastati atorva complet atorvast atin LEANDRA n 40 MG statin ed 40 MG Oral (Guillaume hael Oral Tablet 40 mg Tablet H. Ta rlowe atorvastati tablet M.D., n 40 mg P.C.) tablet POLYETHYLEN Gavila complet POLYETHY MYRNA LEANDRA E GLYCOL x 17 ed GLYCOL 3350 (Guillaume hael 3350 142 gram/d 42419 MG H. Ta rlowe MG/ML Oral ose Powder for M.D ., Solution oral Oral P.C.) [Gavilax] powder Solution Gavilax 17 [Gavilax] gram/dose oral powder Docusate Stool complet Docusate ATH BARRIE Sodium 50 Soften ed Sodium 50 MG (Dennis MG / er-Lax / H. Tarlowe sennosides, ative sennosides, M.D., DETENTION 8.6 MG 8.6 DETENTION 8.6 MG P.C .) Oral Tablet mg-50 Oral Tablet Stool mg Softener-La tablet xative 8.6 mg-50 mg tablet Hydrochloro lisino complet Hydrochl orot LEANDRA thiazide pril ed hiazide 12.5 (Mi chael 12.5 MG / 10 MG / H. Tarlowe Lisinopril mg-hyd Lisinopril M .D., 10 MG Oral rochlo 10 MG Oral P .C.) Tablet rothia Tablet lisinopril zide 10 12.5 mg-hydrochl mg orothiazide tablet 12.5 mg tablet Hydrocortis Procto complet Hydrocor tiso LEANDRA one 25 zone-H ed ne 25 MG/ML (Guillaume hael MG/ML C 2.5 Topical H. Tarlowe Topical % Cream M.D., Cream topica [Proctozone P.C.) [Proctozone l HC] HC] cream Proctozone- perine HC 2.5 % al topical applic cream ator perineal applicator Ultra Thin 462740 complet Ultra Thi n LEANDRA Lancets 31 ed Lancets 31 (Mi chael gauge gauge H. Tarlowe M.D., P.C.) atorvastati atorva complet atorvast atin LEANDRA n 20 MG statin ed 20 MG Oral (Guillaume hael Oral Tablet 20 mg Tablet H. Ta rlowe atorvastati tablet M.D., n 20 mg P.C.) tablet ferrous ferrou complet ferrous ATHE NA sulfate 325 s ed sulfate 325 ( Dennis MG Oral sulfat MG Oral H. Tarl owe Tablet e 325 Tablet M.D., ferrous mg (65 P.C.) sulfate 325 mg mg (65 mg iron) iron) tablet tablet ezetimibe ezetim complet ezetimibe 10 LEANDRA 10 MG Oral jordan 10 ed MG Oral (Guillaume hael Tablet mg Tablet H. Tarlowe ezetimibe tablet M.D., 10 mg P.C.) tablet Milk of complet Milk of LEANDRA Magnesia ed Magnesia (Michaelae l H. Editae M.D., P.C.) Aspirin 81 aspiri complet Aspirin 8 1 LEANDRA MG Delayed n 81 ed MG Delayed (Mi chael Release mg Release Oral H. T arlowe Oral Tablet tablet Tablet M.D. , aspirin 81 ,delay P.C.) mg ed tablet,wali releas yed release e Metronidazo metron complet Metronid azol LEANDRA le 250 MG idazol ed e 250 MG (Guillaume hael Oral Tablet e 250 Oral Tablet H. Tarlowe metronidazo mg M.D., le 250 mg tablet P.C.) tablet Milk of complet Milk of LEANDRA Magnesia ed Magnesia (Michae l H. Tarlowe M.D., P.C.) bismuth Bismat complet bismuth ATHE NA subsalicyla rol ed subsalicylat (Dennis te 262 MG 262 mg e 262 MG H. T arlowe Chewable chewab Chewable M.D., Tablet le Tablet P.C.) Bismatrol tablet 262 mg chewable tablet Aspirin 81 aspiri complet Aspirin 8 1 LEANDRA MG Delayed n 81 ed MG Delayed (Mi chael Release mg Release Oral H. T arlowe Oral Tablet tablet Tablet M.D. , aspirin 81 ,delay P.C.) mg ed tablet,wali releas yed release e Nifedipine complet Nifedipine LEANDRA 0.2% ed 0.2% (Dennis ointment ointment H. Tarl owe APPLY ONE M.D., PEA-SIZE P.C.) APPLICATION NH TID Hydrocortis hydroc complet Hydrocor tiso LEANDRA one 25 ortiso ed ne 25 MG/ML (Guillaume hael MG/ML ne 2.5 Topical H. Tarlow e Topical % Cream M.D., Cream topica P.C.) hydrocortis l one 2.5 % cream topical cream doxycycline doxycy complet doxycycl ine LEANDRA hyclate 100 stein ed hyclate 100 (Dennis MG Oral hyclat MG Oral H. Tarl owe Capsule e 100 Capsule M.D., doxycycline mg P.C.) hyclate 100 capsul mg capsule e Hydrochloro lisino complet Hydrochl orot LEANDRA thiazide pril ed hiazide 12.5 (Mi chael 12.5 MG / 10 MG / H. Tarlowe Lisinopril mg-hyd Lisinopril M .D., 10 MG Oral rochlo 10 MG Oral P .C.) Tablet rothia Tablet lisinopril zide 10 12.5 mg-hydrochl mg orothiazide tablet 12.5 mg tablet FreeStyle 407345 complet FreeStyle LEANDRA Lite Meter ed Lite Meter (Mi chael kit kit Viky Adams.D., P.C.) Hydrocortis Procto complet Hydrocor tiso LEANDRA one 25 zone-H ed ne 25 MG/ML (Guillaume hael MG/ML C 2.5 Topical H. Tarlowe Topical % Cream M.D., Cream topica [Proctozone P.C.) [Proctozone l HC] HC] cream Proctozone- perine HC 2.5 % al topical applic cream ator perineal applicator atorvastati atorva complet atorvast atin LEANDRA n 40 MG statin ed 40 MG Oral (Guillaume hael Oral Tablet 40 mg Tablet H. Ta rlowe atorvastati tablet M.D., n 40 mg P.C.) tablet FreeStyle 697989 complet FreeStyle LEANDRA Lite Strips ed Lite Strips ( Dennis Chinchilla M.D., P.C.) Isopropyl Easy complet Isopropyl AT [place] Alcohol 0.7 Touch ed Alcohol 0.7 (Dennis ML/ML Alcohruslan ML/ML Viky Chinchilla Medicated l Prep Medicated M.D ., Pad Easy Pads Pad P.C.) Touch Alcohol Prep Pads FreeStyle 523488 complet FreeStyle LEANDRA Lite Strips ed Lite Strips ( Dennis Chinchilla M.D., P.C.) ezetimibe ezetim complet ezetimibe 10 LEANDRA 10 MG Oral jordan 10 ed MG Oral (Guillaume hael Tablet mg Tablet H. Amor ezetimibe tablet M.D., 10 mg P.C.) tablet Hydrocortis hydroc complet Hydrocor tiso LEANDRA one 25 ortiso ed ne 25 MG/ML (Guillaume hael MG/ML ne 2.5 Topical H. Tarlow e Topical % Cream M.D., Cream topica P.C.) hydrocortis l one 2.5 % cream topical cream sennosides, senna complet sennoside s, LEANDRA DETENTION 8.6 MG 8.6 mg ed DETENTION 8.6 MG ( Dennis Oral Tablet tablet Oral Tablet H. Tarlowe [Senna-Time [Senna-Time] M.D., ] senna 8.6 P.C.) mg tablet Amoxicillin amoxic complet Amoxicil masha LEANDRA 500 MG Oral illin ed 500 MG Oral (Dennis Capsule 500 mg Capsule Viky rangel amoxicillin capsul M.D., 500 mg e P.C.) capsule Milk of complet Milk of LEANDRA Magnesia ed Magnesia (Michaelae angelina Chinchilla M.D., P.C.) FreeStyle 174836 complet FreeStyle LEANDRA Lite Strips ed Lite Strips ( Dennis Chincihlla M.D., P.C.) bismuth Bismat complet bismuth ATHE NA subsalicyla rol ed subsalicylat (Dennis te 262 MG 262 mg e 262 MG H. T arlowe Chewable chewab Chewable M.D., Tablet le Tablet P.C.) Bismatrol tablet 262 mg chewable tablet Omeprazole omepra complet Omeprazol e LEANDRA 20 MG zole ed 20 MG (Dennis Delayed 20 mg Delayed H. Tarlo we Release capsul Release Oral M. D., Oral e,wali Capsule [facility].) Capsule yed omeprazole releas 20 mg e capsule,del ayed release Omeprazole omepra complet Omeprazol e LEANDRA 20 MG zole ed 20 MG (Dennis Delayed 20 mg Delayed H. Tarlo we Release capsul Release Oral M. D., Oral e,wali Capsule P.C.) Capsule yed omeprazole releas 20 mg e capsule,del ayed release Nifedipine complet Nifedipine LEANDRA 0.2% ed 0.2% (Dennis ointment ointment Viky rangel APPLY ONE M.D., PEA SIZE P.C.) APPLICATION [place] T[place] Insurance Providers Payer name Policy type Policy ID Covered Covered democrat's Policy P jeremy / Coverage democrat ID relationship to Nelson Inf ormation type nelson [facility] [id number] [address] [place] [address] NON CAP Problems, Conditions, and Diagnoses Code Display Name Description Problem Type Effective Dates Data Source(s) 98733466 Prolapsed Prolapsed Problem 06/09/2019 LEANDRA external External 12:00:00 AM EST (Dennis Salmon hemorrhoids Hemorrhoids Amor Storey , [facility] [id number] Anal pain Anal Pain Problem 11/19/2018 LEANDRA 12:00:00 AM EDT (Dennis Chinchilla [facility] [id number] Bleeding from Bleeding from Problem 11/19/2018 LEANDRA anus Anus 12:00:00 AM EDT (Dennis [facility]inchilla [facility] [id number] Anal fissure Anal Fissure Problem 11/19/2018 LEANDRA 12:00:00 AM EDT (Dennis [facility]inchilla [facility] [id number] Anal pain Anal Pain Problem 11/19/2018 LEANDRA 12:00:00 AM EDT (Dennis [facility]inchilla [facility] [id number] Bleeding from Bleeding from Problem 11/19/2018 LEANDRA anus Anus 12:00:00 AM EDT (Dennis [facility]inchilla [facility] [id number] Anal fissure Anal Fissure Problem 11/19/2018 LEANDRA 12:00:00 AM EDT (Dennis [facility]inchilla [facility] [id number] Anal pain Anal Pain Problem 11/19/2018 LEANDRA 12:00:00 AM EDT (Dennis [facility]inchilla [facility] [id number] Bleeding from Bleeding from Problem 11/19/2018 LEANDRA anus Anus 12:00:00 AM EDT (Dennis [facility]inchilla [facility] [id number] Anal fissure Anal Fissure Problem 11/19/2018 LEANDRA 12:00:00 AM EDT (Dennis [facility]inchilla [facility] Surgeries/Procedures Procedure Description Date Indications Data Source(s) Colonoscopy 05/14/2014 12:00:00 AM PAUL Fajardo (Dennis [facility] Colonoscopy 05/14/2014 12:00:00 AM PAUL Fajardo (Dennis LuciaAgueda [facility] Colonoscopy 05/14/2014 12:00:00 AM PAUL Fajardo (Dennis LuciaAgueda [facility] Social History Code Duration Value Status Description Data Source(s ) Smoking Current Some Day completed Current Some Day AT [facility] (Dennis Myers. Smoker Smoker [facility]or Ding[facility] Smoking Current Some Day completed Current Some Day AT [facility] (Dennis H. Smoker Smoker Editae M.Kaden[facility] Smoking Current Some Day completed Current Some Day AT [facility] (Dennis H. Smoker Smoker Elanlowe M.Kaden[facility] Vital Signs ID Date Data Source UNK Name Value Range Interpretation Code Description Data Source(s) Body height 65 [in_i] 65 [in_i] LEANDRA (Monty Chinchilla [facility] Body height 65 [in_i] 65 [in_i] LEANDRA (Monty Adams.Kaden[facility] Body height 65 [in_i] 65 [in_i] LEANDRA (Monty Adams.[facility] Body weight 182 [lb_av] 182 [lb_av] LEANDRA (Guillaume Adams.[facility] Body mass index 30.3 kg/m2 30.3 kg/m2 LEANDRA (Angie Salmon (BMI) [Ratio] Tarlowe M.D [facility] Body height 65 [in_i] 65 [in_i] LEANDRA (Monty Adams.[facility]aden[facility] Body weight 182 [lb_av] 182 [lb_av] LEANDRA (Guillaume Adams.[facility]aden[facility] Body mass index 30.3 kg/m2 30.3 kg/m2 LEANDRA (Angie Salmon (BMI) [Ratio] Tarlowe M.D [facility] Body height 65 [in_i] 65 [in_i] LEANDRA (Monty Ansarilowe M.D[facility] Body weight 182 [lb_av] 182 [lb_av] LEANDRA (Guillaume erick Chinchilla M.D[facility] Body mass index 30.3 kg/m2 30.3 kg/m2 LEANDRA (Angie jamiesarmad MyersAgueda (BMI) [Ratio] Tarlowe M.D [facility] Body height 65 [in_i] 65 [in_i] LEANDRA (Monty Ansarilowe M.D[facility] Body height 65 [in_i] 65 [in_i] LEANDRA (Monty Ansarilowe M.D[facility] Body height 65 [in_i] 65 [in_i] LEANDRA (Monty Ansarilowe M.D[facility] Body height 65 [in_i] 65 [in_i] LEANDRA (Monty Kohlere M.D[facility] Body height 65 [in_i] 65 [in_i] LEANDRA (Monty reilly H. Elanlowe M.D[facility] Body height 65 [in_i] 65 [in_i] LEANDRA (Monty reilly HAgueda Ansarilowe M.D[facility] Body height 65 [in_i] 65 [in_i] LEANDRA (Monty Ansarilowe M.D[facility] Body weight 190 [lb_av] 190 [lb_av] LEANDRA (Guillaume Kohlere M.D[facility] Body mass index 31.6 kg/m2 31.6 kg/m2 LEANDRA (Angie jamiesarmad MyersAgueda (BMI) [Ratio] Tarlowe M.D ., [facility] Body height 65 [in_i] 65 [in_i] LEANDRA (Monty reilly H. Elanlowe M.D[facility] Body weight 190 [lb_av] 190 [lb_av] LEANDRA (Guillaume erick Ansarilowe M.D., P.C[facility] Body mass index 31.6 kg/m2 31.6 kg/m2 LEANDRA (Angie jamiesarmad MyersAgueda (BMI) [Ratio] Amor Adams.Kaden ., P.C[facility] Body height 65 [in_i] 65 [in_i] LEANDRA (Monty melba Chinchilla M.D[facility] Body weight 190 [lb_av] 190 [lb_av] LEANDRA (Guillaume suarez Viky Chinchilla M.D[facility] Body mass index 31.6 kg/m2 31.6 kg/m2 LEANDRA (Angie jamiesarmad MyersAgueda (BMI) [Ratio] Editae Angie.Kaden ., P.C.) Body height 65 [in_i] 65 [in_i] LEANDRA (Monty melba Chinchilla M.D[facility] Patient Treatment Plan of Care Planned Activity Planned Date Details Description Data Source (s) LEANDRA (Dennis Chinchilla M.D[facility] P .C[facility] LEANDRA (Dennis Chinchilla M.D[facility] P .C.) LEANDRA (Dennis Chinchilla M.D[facility] P .C.) LEANDRA (Dennis Chinchilla M.D., P .C.) LEANDRA (Dennis Chinchilla M.D., P .C.) LEANDRA (Dennis Chinchilla M.D., P .C.) Ergocalciferol 71027 UNT Oral LEANDRA (Dennis Salmon Capsule Amor Storey, P .C[facility] Ultra-Care Lancets 30 gauge LEANDRA (Dennsi Chinchilla M.D[facility] P .C.) Ultra Thin Lancets 31 gauge LEANDRA (Dennis Chinchilla M.D[facility] P .[facility] Docusate Sodium 50 MG / ATHE NA (Dennis Salmon sennosides, DETENTION 8.6 MG Oral Tarlowe M.D[facility] Tablet sennosides, DETENTION 8.6 MG Oral LEANDRA (Dennis Salmon Tablet [Senna-Time] Tarsashae M.D., P.C.) Hydrocortisone 25 MG/ML Topical LEANDRA (Dennis Salmon Cream [Proctozone HC] Edita e M.D., P.C.) Omeprazole 20 MG Delayed ATH BARRIE (Dennis H. Release Oral Capsule Tarlowe M.D[facility] Nifedipine 0.2% ointment APPLY LEANDRA (Dennis H. ONE PEA-SIZE APPLICATION [place] TID Tarlowe M.D[facility] Nifedipine 0.2% ointment APPLY LEANDRA (Dennis H. ONE PEA-SIZE APPLICATION [place] TID Tarlowe M.D[facility] Nifedipine 0.2% ointment APPLY LEANDRA (Dennis H. ONE PEA SIZE APPLICATION [place] TID Tarlowe M.D., P.C.) Milk of Gay LEANDRA (Guillaume hael H. Amor M.D., P .C.) Metronidazole 500 MG Oral AT GULSHAN (Dennis H. Tablet Tarlowe M.D[facility] P .C.) Metronidazole 250 MG Oral AT GULSHAN (Dennis H. Tablet Tarlowe M.D., P .C.) Hydrochlorothiazide 12.5 MG / LEANDRA (Dennis H. Lisinopril 10 MG Oral Tablet Tarsashae M.D., P.C.) Ibuprofen 600 MG Oral Tablet LEANDRA (Dennis H. Amor M.D[facility] P .[facility] Hydrocortisone 25 MG/ML Topical LEANDRA (Dennis H. Cream Amor M.D[facility] P .[facility] POLYETHYLENE GLYCOL 3350 142 LEANDRA (Dennis H. MG/ML Oral Solution [Gavilax] Amor M.D., P.C.) FreeStyle Lite Strips LEANDRA (Dennis Adams.Kaden., P .C.) FreeStyle Lite Meter kit ATH BARRIE (Dennis H. Amor Adams.D., P .C.) ferrous sulfate 325 MG Oral LEANDRA (Dennis H. Tablet Tarlowe M.D[facility] P .C.) ezetimibe 10 MG Oral Tablet LEANDRA (Dennis H. Editae M.D., P .C.) Sodium Phosphate, Dibasic 59.3 LEANDRA (Dennis Salmon MG/ML / Sodium Phosphate, Ta rlowe M.D., P.C.) Monobasic 161 MG/ML Enema Isopropyl Alcohol 0.7 ML/ML LEANDRA (Dennis Myers. Medicated Pad Amor M.D., P.C.) doxycycline hyclate 100 MG Oral LEANDRA (Dennis H. Capsule Tararelis M.Kaden., P .C.) compound rx(nif+fabian+vas) APPLY LEANDRA (Dennis H. A PEA SIZE AMOUNT RECTALLY T ararelis Ding., P.C.) THREE TIMES A DAY bismuth subsalicylate 262 MG LEANDRA (Dennis H. Chewable Tablet Amor Adams.Kaden. , P.C.) Bisacodyl 5 MG Delayed Release LEANDRA (Dennis H. Oral Tablet Amor Adams.Kaden., P .C.) Autolet Impression Lancing A THENA (Dennis H. Device kit Amor Ding., P .C.) atorvastatin 40 MG Oral Tablet LEANDRA (Dennis H. Amor Adams.Kaden., P .C.) atorvastatin 20 MG Oral Tablet LEANDRA (Dennis H. Amor Adams.Kaden., P .C.) Aspirin 81 MG Delayed Release LEANDRA (Dennis H. Oral Tablet Amor Ding., P .C.) Amoxicillin 875 MG / LEANDRA (Dennis H. Clavulanate 125 MG Oral Tablet Tararelis Adams.Kaden., P.C.) Amoxicillin 500 MG Oral Capsule LEANDRA (Dennis H. Amor Adams.Kaden., P .C.) Ergocalciferol 28601 UNT Oral LEANDRA (Dennis H. Capsule Elanlowe M.D., P .C.) Ultra-Care Lancets 30 gauge LEANDRA (Dennis H. Amor Ding., P .[facility].) Ultra Thin Lancets 31 gauge LEANDRA (Dennis H. Amor Ding., P .C.) Docusate Sodium 50 MG / ATHE NA (Dennis H. sennosides, DETENTION 8.6 MG Oral Tarlowe M.D[facility].) Tablet sennosides, DETENTION 8.6 MG Oral LEANDRA (Dennis H. Tablet [Senna-Time] Tararelis M.D., P.C.) Hydrocortisone 25 MG/ML Topical LEANDRA (Dennis H. Cream [Proctozone HC] Elanlow e Angie.Kaden., P.C.) Omeprazole 20 MG Delayed ATH BARRIE (Dennis H. Release Oral Capsule Amor M.Kaden., [facility] Nifedipine 0.2% ointment APPLY LEANDRA (Dennis H. ONE PEA-SIZE APPLICATION [place] TID Tarlowe M.D[facility] Nifedipine 0.2% ointment APPLY LEANDRA (Dennis H. ONE PEA-SIZE APPLICATION [place] TID Tarlowe M.D[facility] Nifedipine 0.2% ointment APPLY LEANDRA (Dennis H. ONE PEA SIZE APPLICATION [place] TID Tarlowe M.D., P.[facility] Milk of Gay LEANDRA (Guillaume hael H. Amor Ding., P .C.) Metronidazole 500 MG Oral AT [place] (Dennis H. Tablet Amor M.D., P .C.) Metronidazole 250 MG Oral AT GULSHAN (Dennis H. Tablet Amor M.Kaden[facility] P .C.) Hydrochlorothiazide 12.5 MG / LEANDRA (Dennis H. Lisinopril 10 MG Oral Tablet Amor Adams.Kaden., P.C.) Ibuprofen 600 MG Oral Tablet LEANDRA (Dennis H. Amor Ding., P .C.) Hydrocortisone 25 MG/ML Topical LEANDRA (Dennis H. Cream Amor Ding., P .C[facility] POLYETHYLENE GLYCOL 3350 142 LEANDRA (Dennis H. MG/ML Oral Solution [Gavilax] Amor Ding., P.C.) FreeStyle Lite Strips LEANDRA (Dennis Chinchilla M.D., P .C.) FreeStyle Lite Meter kit ATH BARRIE (Dennis Chinchilla M.D., P .C.) ferrous sulfate 325 MG Oral LEANDRA (Dennis H. Tablet Editae M.D., P .C.) ezetimibe 10 MG Oral Tablet LEANDRA (Dennis H. Amor Adams.Kaden., P .C.) Sodium Phosphate, Dibasic 59.3 LEANDRA (Dennis H. MG/ML / Sodium Phosphate, Ta rlowe Angie.D., P.C.) Monobasic 161 MG/ML Enema Isopropyl Alcohol 0.7 ML/ML LEANDRA (Dennis Myers. Medicated Pad Amor Ding., P.C[facility] doxycycline hyclate 100 MG Oral LEANDRA (Dennis H. Capsule Tarlowe M.D., P .C.) compound rx(nif+fabian+vas) APPLY LEANDRA (Dennis Myers. ONE PEA-SIZE APPLICATION Tar lowe M.D., P.C.) RECTALLY 3 TIMES A DAY bismuth subsalicylate 262 MG LEANDRA (Dennis Myers. Chewable Tablet Tarlowrony M.D. , P.C.) Autolet Impression Lancing A THENA (Dennis Myers. Device kit Amor M.D., P .C.) atorvastatin 40 MG Oral Tablet LEANDRA (Dennis H. Tarlowe M.D., P .C.) atorvastatin 20 MG Oral Tablet LEANDRA (Dennis H. Tarlowe M.D., P .C.) Aspirin 81 MG Delayed Release LEANDRA (Dennis H. Oral Tablet Tarlowe M.D., P .C.) Amoxicillin 875 MG / LEANDRA (Dennis H. Clavulanate 125 MG Oral Tablet Tarlowe M.D., P.C.) Amoxicillin 500 MG Oral Capsule LEANDRA (Dennis H. Editae M.D., P .C.) Ergocalciferol 87475 UNT Oral LEANDRA (Dennis H. Capsule Tarlowe M.D., P .C.) Ultra-Care Lancets 30 gauge LEANDRA (Dennis H. Amor M.D[facility] P .C[facility] Ultra Thin Lancets 31 gauge LEANDRA (Dennis H. Editae M.D., P .C.) Docusate Sodium 50 MG / ATHE NA (Dennis Myers. sennosides, DETENTION 8.6 MG Oral Tarlowe M.D[facility] P.C.) Tablet sennosides, DETENTION 8.6 MG Oral LEANDRA (Denins H. Tablet [Senna-Time] Tarlowe M.D., P.C[facility] Hydrocortisone 25 MG/ML Topical LEANDRA (Dennis Myers. Cream [Proctozone HC] Tarlow e M.D., P.C.) Omeprazole 20 MG Delayed ATH BARRIE (Dennis H. Release Oral Capsule Tarlowe M.D[facility] Nifedipine 0.2% ointment APPLY LEANDRA (Dennis Myers. ONE PEA-SIZE APPLICATION [place] TID Tarlowe M.D[facility] Nifedipine 0.2% ointment APPLY LEANDRA (Dennis Myers. ONE PEA-SIZE APPLICATION [place] TID Amor Ding., [facility] Milk of Magnesia LEANDRA (Guillaume hael H. Amor Ding., P .C.) Metronidazole 500 MG Oral AT [place]ULSH[place] (Dennis H. Tablet Amor M.D., P .C.) Metronidazole 250 MG Oral AT [place] (Dennis H. Tablet Editae M.D., P .C.) Hydrochlorothiazide 12.5 MG / LEANDRA (Dennis Myers. Lisinopril 10 MG Oral Tablet Tararelis Adams.Kaden., P.C.) Ibuprofen 600 MG Oral Tablet LEANDRA (Dennis Myers. Amor Adams.Kaden[facility] P .C.) Hydrocortisone 25 MG/ML Topical LEANDRA (Dennis Myers. Cream Amor Ding[facility] P .[facility] POLYETHYLENE GLYCOL 3350 142 LEANDRA (Dennis Myers. MG/ML Oral Solution [Gavilax] Amor Ding., P.C[facility] FreeStyle Lite Strips LEANDRA (Dennis Myers. Amor Ding., P .C.) FreeStyle Lite Meter kit ATH BARRIE (Dennis Myers. Amor Ding., P .C.) ferrous sulfate 325 MG Oral LEANDRA (Dennis H. Tablet Amor Adams.Kaden., P .C.) ezetimibe 10 MG Oral Tablet LEANDRA (Dennis Myers. Amor Adams.Kaden., P .C.) Sodium Phosphate, Dibasic 59.3 LEANDRA (Dennis Myers. MG/ML / Sodium Phosphate, Ta rlowe Angie.Kaden., P.C.) Monobasic 161 MG/ML Enema Isopropyl Alcohol 0.7 ML/ML LEANDRA (Dennis Myers. Medicated Pad Amor Adams.Kaden[facility] P.C.) doxycycline hyclate 100 MG Oral LEANDRA (Dennis Myers. Capsule Amor M.Kaden[facility] P .C.) bismuth subsalicylate 262 MG LEANDRA (Dennis Myers. Chewable Tablet Amor Adams.Kaden. , P.C.) Autolet Impression Lancing A THENA (Dennis Myers. Device kit Amor Ding., P .C.) atorvastatin 40 MG Oral Tablet LEANDRA (Dennis Chinchilla M.D., P .C.) atorvastatin 20 MG Oral Tablet LEANDRA (Dennis Chinchilla M.D., P .C.) Aspirin 81 MG Delayed Release LEANDRA (Dennis Salmon Oral Tablet Amor Storey, P .C.) Amoxicillin 875 MG / LEANDRA (Dennis Salmon Clavulanate 125 MG Oral Tablet Amor Storey, P.C.) Amoxicillin 500 MG Oral Capsule LEANDRA (Dennis Chinchilla M.D., P .C.)
== END 2020-02-04 17:11 | disposition home or self-care (01) ==
LOC: JERFT 15:22
DX: M54.12 Radiculopathy, cervical region (principal)
CPT/HCPCS: 72050-TC-FY; 99284-25

== ENCOUNTER 2024-10-02 15:39 | Emergency (ER) | payer OTHER, BC ==
[2024-10-02 15:57] VITALS: RESP 18; BMI 29.0
[2024-10-02] MEDS ORDERED: ACETAMINOPHEN 325 MG TABLET (FP) ONE (17:06)
[2024-10-02] MEDS ORDERED: LIDOCAINE 5% TOPICAL PATCH ONE (17:06)
[2024-10-02] MEDS ORDERED: METOCLOPRAMIDE HCL 10 MG TABLET (FP) PO ONE (17:06)
[2024-10-02] MEDS: ACETAMINOPHEN 500 MG TABLET (FP) PO ONE (17:33)
[2024-10-02] MEDS: METOCLOPRAMIDE HCL 10 MG TABLET (FP) PO ONE (17:33)
[2024-10-02] MEDS: LIDOCAINE 4% PATCH TP ONE (17:33)
[2024-10-02] MEDS ORDERED: METHOCARBAMOL 500 MG TABLET ONE (17:49)
[2024-10-02] MEDS: METHOCARBAMOL 500 MG TABLET PO ONE (17:52)
[2024-10-02 20:54] VITALS: BP 122/76; PULSE 82; TEMP 98.2
[2024-10-02] MEDS ORDERED: LIDOCAINE PATCH REMOVAL MC SCH (22:00)
== END 2024-10-02 20:55 | disposition home or self-care (01) ==
LOC: JER 15:39
DX: R42 Dizziness and giddiness (principal); R51.9 Headache, unspecified; M25.512 Pain in left shoulder; M54.2 Cervicalgia; V49.40XA Driver injured in collision with unspecified motor vehicles in traffic accident, initial encounter; Y92.410 Unspecified street and highway as the place of occurrence of the external cause
CPT/HCPCS: 70450-TC; 72125-TC; 72128-TC; 72131-TC; 73030-TC-LT-FY; 99284-25